=== PATIENT | male | born 1965 | race Caucasian/White ===

== ENCOUNTER 2022-09-01 12:59 | Observation (INO) | payer OTHER, SELFPAY ==
[2022-09-01 13:01] VITALS: BP 174/96; PULSE 94; RESP 18; TEMP 36.1; O2SAT 97; BMI 36.0
--- NOTE | 2022-09-01 13:20 | CT_ITS ---
EXAM: CT ABDOMEN AND PELVIS WITH INTRAVENOUS CONTRAST CLINICAL INDICATION: LLQ pain and tenderness TECHNIQUE: Helically acquired images were obtained of the abdomen and pelvis with intravenous contrast. This CT exam was performed using one or more of the following dose reduction techniques: automated exposure control, adjustment of the mA and/or kV according to patient size, and/or use of iterative reconstruction technique. This report was created using [employer] report generation technology. CONTRAST: IV 100mL Isovue-370 COMPARISON: None. FINDINGS: LOWER THORAX: Normal. Lung bases are clear. No cardiomegaly. No pericardial effusion. ABDOMEN: LIVER: Normal. Homogeneous. No focal mass. PANCREAS: Normal. No focal cystic or solid mass. SPLEEN: Normal. Normal size without focal cystic or solid mass. ADRENALS: Normal. No nodules. KIDNEYS AND URETERS: Normal. Normal renal size and position. No hydronephrosis. STOMACH AND BOWEL: Normal. No bowel distention. No focal inflammatory change. PELVIS: APPENDIX: No evidence of acute appendicitis. BLADDER: Normal. REPRODUCTIVE: Unremarkable as visualized. No mass. ABDOMEN and PELVIS: INTRAPERITONEAL SPACE: Wall thickening of the sigmoid colon noted associated with 5 x 3 cm extraluminal gas and fluid collection along the left lateral margin of the proximal sigmoid colon. Appearance consistent with acute diverticulitis with contained perforation and abscess formation. BONES/JOINTS: No suspicious lytic or blastic abnormality. SOFT TISSUES: Normal. No discrete abdominal or pelvic wall hernia. VASCULATURE: Normal. Abdominal aorta is non-dilated. LYMPH NODES: Normal. No enlarged lymph nodes. CT/Abdomen/Pelvis W IV Cont ONLY IMPRESSION: Acute sigmoid diverticulitis with perforation and associated 5 x 3 cm abscess. Electronically Signed: Grant Kyle MD at 15:14 EDT ,
[2022-09-01 13:33] LABS: Absolute Lymphocyte Count 1.55 X10^3/uL (0.83-4.51); Absolute Neutrophil Count 11.6 X10^3/uL (2.0-7.7); Basophil# 0.05 X10^3/uL; Basophil% 0.3 % (0-1); Eosinophil# 0.04 X10^3/uL; Eosinophils% 0.3 % (0-5); Hematocrit 44.6 % (40-54); Hemoglobin 14.8 g/dL (13.0-16.5); Lymphocyte # 1.55 X10^3/ul (0.83-4.51); Lymphocyte % 10.6 % (19-41); Mean Corp Hgb Conc 33.2 g/dL (32-36); Mean Corpuscular Hgb 31.2 pg (27.0-32.0); Mean Corpuscular Volume 93.9 fL (80-94); Mean Platelet Vol. 8.7 fl (6.2-12.0); Monocyte# 1.27 X10^3/uL; Monocyte% 8.7 % (0-10); NRBC Flagged by Analyzer 0 % (0-5); Neutrophil # 11.64 X10^3/uL (2.7-7.7); Neutrophil % 79.2 % (47-70); Platelet Count 275 K/mm3 (150-450); RBC Distribution Width CV 12.4 % (11.6-14.6); Red Blood Count 4.75 M/mm3 (4.6-6.2); White Blood Count 14.7 K/mm3 (4.4-11.0)
--- NOTE | 2022-09-01 13:42 | EX.ED.DYSGE1 ---
HPI <ALEXIA Hodges - Last Filed: 09/01/22 19:21> History of Present Illness Chief Complaint: Abd Pain Narrative Narrative: Patient presenting today with abdominal pain that he has had since Friday. He states that the pain is intermittent and primarily located in his left lower quadrant. Patient had to take off work Friday and Friday because his pain was so severe. He states that it is getting better, however, it is not going away. He was seen at urgent care on Friday and they diagnosed patient with constipation and encouraged him to try MiraLAX and if that did not help in 2 days to follow-up in the ED. He states that he has had loose stool since Friday without any constipation. He denies any fever, nausea, blood in the stool, and vomiting. He denies any prior abdominal surgeries as well as a history of diverticulitis. PFSH <ALEXIA Hodges - Last Filed: 09/01/22 19:21> [facility] Medical History no medical history Home Medications NK 09/01/22 [History Last Taken Unknown] Allergy/AdvReac Type Severity Reaction Status Date / Time No Known Allergies Allergy Verified 09/01/22 13:02 Surgical History no surgical history Social History Smoking Status: Never smoker ROS <ALEXIA Hodges - Last Filed: 09/01/22 19:21> ROS ED Constitutional Constitutional ED: Denies chills, fever(s) or sweats Eyes Eyes: Denies blurry vision or diplopia Cardiovascular Cardiovascular: Denies chest pain or palpitations Respiratory/Chest Respiratory/Chest: Denies cough or dyspnea Gastrointestinal Gastrointestinal: Reports abdominal pain and diarrhea; Denies constipation, nausea or vomiting Genitourinary Genitourinary ED: Denies dysuria, hematuria or urinary urgency Musculoskeletal Musculoskeletal: Denies arthralgias or myalgias Integumentary Denies abscess, Abrasions or rash Neurologic Neurologic: Denies weakness Psychiatric Psychiatric: Denies anxiety, depression, suicidal ideation or suicidal thoughts EXAM <ALEXIA Hodges - Last Filed: 09/01/22 19:21> Physical Exam Const Vital Signs: 09/01/22 13:01 09/01/22 15:48 Temperature 97 F L 98.3 F Temperature Source Temporal Temporal Pulse Rate 94 76 Respiratory Rate 18 16 Blood Pressure 174/96 H 150/86 H Blood Pressure Mean 122 107 Pulse Ox 97 97 Oxygen Delivery Method Room Air Room Air Positive well nourished, well developed and no apparent distress General Appearance ED: well developed HEENT Reports normocephalic and head/scalp atraumatic Mouth ED: Yes moist mucous membranes normal Eyes PERRL and EOMs intact bilaterally Neck full ROM and supple Chest Wall inspection of chest normal Resp normal respiratory effort and clear to auscultation bilaterally Cardio regular rate and regular rhythm GI soft to palpation, non-tender, non-distended and no masses GI Narrative: L lower quadrant tenderness to palpation without any rigidity or guarding. No peritoneal signs. Back/Spine normal ROM and normal to inspection Extremity normal to inspection and full ROM Neuro oriented x3, CN's II-XII intact bilaterally, moves all extremities, no focal motor deficits and no sensory deficits noted Sensorium / Orientation: awake and alert Psych mental status grossly normal and thought process normal Skin no rashes or lesions noted and no wounds <Dr. Jovi Alford MD - Last Filed: 09/01/22 14:13> Physical Exam Const Vital Signs: 09/01/22 13:01 09/01/22 15:48 Temperature 97 F L 98.3 F Temperature Source Temporal Temporal Pulse Rate 94 76 Respiratory Rate 18 16 Blood Pressure 174/96 H 150/86 H Blood Pressure Mean 122 107 Pulse Ox 97 97 Oxygen Delivery Method Room Air Room Air [facility] <ALEXIA Hodges - Last Filed: 09/01/22 19:21> [facility] Narrative Medical decision making narrative: Patient presenting today with left lower quadrant abdominal pain that he has had since last Friday. He states that the pain is getting better and was much more severe on Friday and Friday. However, since it has not gone away he thought he would come in to be evaluated. There are suspicions for diverticulitis as well as other abdominal etiology. Labs will be obtained to rule out leukocytosis, anemia, evaluate kidney function and liver enzymes. Patient does not want anything for pain at this time nor is he nauseous. Because of his abdominal tenderness on examination, CT of the abdomen and pelvis with IV contrast will be obtained to rule out diverticulitis, hernia, pancreatitis, kidney stone, and other abdominal etiology. CT does show a acute sigmoid diverticulitis with a perforation and fluid collection. Patient does have an elevated WBC count. General surgery has been consulted, patient will be admitted to the hospital in stable condition for further evaluation. He has been started on IV Zosyn. He is comfortable with plan. I have personally performed a face to face assessment of the patient and have reviewed the OLEKSANDR Note. I performed a substantive portion of the visit including all aspects of the following. My deng findings include: History is for 6-year-old male no seen past medical history. No primary care physician. Being evaluated by myself with our physician switchboard operator assistant. Complain left lower quadrant abdominal pain for approximately a week. Was seen in urgent care placed on MiraLAX for possible constipation. States has been having normal bowel movements before and after the MiraLAX. No dysuria or hematuria. No fever. No prior history of diverticulitis. No abdominal trauma. No history of kidney stone. Denies any urinary symptoms. Exam is [56-year-old male no acute distress. Vital signs stable afebrile. HEENT exam unremarkable. Lungs clear. Heart regular rhythm no murmur. Abdomen soft nondistended normal bowel sounds no peritoneal signs. Tender left lower quadrant only. Right upper right lower quadrant unremarkable. No obvious hernia. No mass. No distention. No signs of trauma. Moving all 4 extremities. Neurologic exam normal.] Medical Decision Making [middle-aged male with left lower quadrant abdominal pain differential would include diverticulitis versus hernia versus kidney stone versus muscle strain versus other. CAT scan and labs are pending.] Other additions or changes: [None] Lab Data Attestation: I reviewed the patient's lab results. Lab results narrative: W AC 47, sodium 133, AST 10 Labs: Laboratory Results - last 24 hr 09/01/22 09/01/22 13:20 13:20 WBC 14.7 H RBC 4.75 Hgb 14.8 Hct 44.6 MCV 93.9 MCH 31.2 MCHC 33.2 RDW Std Deviation 43.0 RDW Coeff of Rae 12.4 Plt Count 275 MPV 8.7 Immature Gran % (Auto) 0.900 Neut % (Auto) 79.2 H Lymph % (Auto) 10.6 L [place] % (Auto) 8.7 Eos % (Auto) 0.3 Baso % (Auto) 0.3 Absolute Neuts (auto) 11.6 H Absolute Lymphs (auto) 1.55 Nucleated RBC % 0 Sodium 133 L Potassium 4.3 Chloride 101 Carbon Dioxide 25.0 Anion Gap 7 BUN 10 Creatinine 0.98 Estim Creat Clear Calc 86.90 Est GFR (MDRD) Af Amer 102 Est GFR (MDRD) Non-Af 84 BUN/Creatinine Ratio 10.2 Glucose 106 Calcium 9.0 Total Bilirubin 0.60 AST 10 L ALT 34 Alkaline Phosphatase 79 Total Protein 7.3 Albumin 3.2 Globulin 4.1 Albumin/Globulin Ratio 0.8 L Radiography Diagnostic Testing: Clinical Impression(s) from Imaging Studies Abdomen/Pelvis CT 09/01/22 13:20 IMPRESSION: Acute sigmoid diverticulitis with perforation and associated 5 x 3 cm abscess. Electronically Signed: Grant Kyle MD at 15:14 EDT , CT also reviewed and interpreted by attending ED physician <Dr. Jovi Alford MD - Last Filed: 09/01/22 14:13> MDM MDM Narrative Medical decision making narrative: I have personally performed a face to face assessment of the patient and have reviewed the OLEKSANDR Note. I performed a substantive portion of the visit including all aspects of the following. My deng findings include: History is for 6-year-old male no seen past medical history. No primary care physician. Being evaluated by myself with our physician switchboard operator assistant. Complain left lower quadrant abdominal pain for approximately a week. Was seen in urgent care placed on MiraLAX for possible constipation. States has been having normal bowel movements before and after the MiraLAX. No dysuria or hematuria. No fever. No prior history of diverticulitis. No abdominal trauma. No history of kidney stone. Denies any urinary symptoms. Exam is [56-year-old male no acute distress. Vital signs stable afebrile. HEENT exam unremarkable. Lungs clear. Heart regular rhythm no murmur. Abdomen soft nondistended normal bowel sounds no peritoneal signs. Tender left lower quadrant only. Right upper right lower quadrant unremarkable. No obvious hernia. No mass. No distention. No signs of trauma. Moving all 4 extremities. Neurologic exam normal.] Medical Decision Making [middle-aged male with left lower quadrant abdominal pain differential would include diverticulitis versus hernia versus kidney stone versus muscle strain versus other. CAT scan and labs are pending.] Other additions or changes: [None] Lab Data Labs: Laboratory Results - last 24 hr 09/01/22 09/01/22 13:20 13:20 WBC 14.7 H RBC 4.75 Hgb 14.8 Hct 44.6 MCV 93.9 MCH 31.2 MCHC 33.2 RDW Std Deviation 43.0 RDW Coeff of Rae 12.4 Plt Count 275 MPV 8.7 Immature Gran % (Auto) 0.900 Neut % (Auto) 79.2 H Lymph % (Auto) 10.6 L [place] % (Auto) 8.7 Eos % (Auto) 0.3 Baso % (Auto) 0.3 Absolute Neuts (auto) 11.6 H Absolute Lymphs (auto) 1.55 Nucleated RBC % 0 Sodium 133 L Potassium 4.3 Chloride 101 Carbon Dioxide 25.0 Anion Gap 7 BUN 10 Creatinine 0.98 Estim Creat Clear Calc 86.90 Est GFR (MDRD) Af Amer 102 Est GFR (MDRD) Non-Af 84 BUN/Creatinine Ratio 10.2 Glucose 106 Calcium 9.0 Total Bilirubin 0.60 AST 10 L ALT 34 Alkaline Phosphatase 79 Total Protein 7.3 Albumin 3.2 Globulin 4.1 Albumin/Globulin Ratio 0.8 L Radiography Diagnostic Testing: Clinical Impression(s) from Imaging Studies Abdomen/Pelvis CT 09/01/22 13:20 IMPRESSION: Acute sigmoid diverticulitis with perforation and associated 5 x 3 cm abscess. Electronically Signed: Grant Kyle MD at 15:14 EDT , Discharge Plan Dx/Rx/DC Orders Clinical Impression: Perforation of sigmoid colon due to diverticulitis Disposition Disposition: Acute Care Hospital [facility] Discharge Date/Time: 09/01/22 16:50
[2022-09-01 13:49] LABS: ALB/GLOB Ratio 0.8 RATIO (0.9-2.4); AST(SGOT) 10 U/L (15-37); Alanine Aminotransfer ALT/SGPT 34 U/L (16-61); Albumin, Serum 3.2 g/dL (3.2-5.0); Alkaline Phosphatase 79 U/L (45-117); Anion Gap 7 (5-15); BUN 10 mg/dL (7-18); BUN/Creat Ratio 10.2 RATIO (10-20); Chloride 101 mmol/L (98-107); Creatinine, Serum 0.98 mg/dL (0.70-1.30); EST Glomerular Filtration Rate 84 mL/min (>60); Est Glom Filt Rate - Afr Amer 102 mL/min (>60); Globulin 4.1 g/dL (2.2-4.2); Glucose 106 mg/dL (74-106); Potassium 4.3 mmol/L (3.5-5.1); Protein, Total 7.3 g/dL (6.4-8.2); Sodium Level 133 mmol/L (136-145)
[2022-09-01 15:48] VITALS: BP 150/86; PULSE 76; RESP 16; TEMP 36.8; O2SAT 97
--- NOTE | 2022-09-01 16:15 | HP.PCM.SX_ITS ---
HPI - General General Date of Admission: 09/01/22 HPI Narrative LIZA MEAD, is a 56 M who presents with lower pain. Patient had sudden left lower quadrant pain that happened in the middle the night last Friday, 1 week ago. Patient reports that he went to an urgent care in the middle of the week and they diagnosed him as constipation and started him on laxatives. He says for the past few days the pain is actually getting better but has persisted so he came to the emergency room. He denies fevers or chills or nausea or vomiting. He has never had a colonoscopy. He denies blood in his stool. [facility] Medical History no medical history Home Medications NK 09/01/22 [History Last Taken Unknown] Allergy/AdvReac Type Severity Reaction Status Date / Time No Known Allergies Allergy Verified 09/01/22 13:02 no significant family history Surgical History no surgical history no surgical history Social History Smoking Status: Never smoker ROS Constitutional Constitutional: Denies anorexia or fatigue Eyes Eyes: Denies blurry vision ENT HEENT: Denies abnormal hearing Cardiovascular Cardiovascular: Denies chest pain Respiratory/Chest Respiratory/Chest: Denies cough or dyspnea Gastrointestinal Gastrointestinal: Reports abdominal pain; Denies constipation, diarrhea, nausea or vomiting Genitourinary Genitourinary: Denies change in urinary stream Musculoskeletal Musculoskeletal: Denies abnormal gait Integumentary Integumentary: Denies jaundice Neurologic Neurologic: Denies dizziness Psychiatric Psychiatric: Denies anxiety Vital Signs Vital Signs Vital Signs: 09/01/22 13:01 09/01/22 15:48 Temperature 97 F L 98.3 F Temperature Source Temporal Temporal Pulse Rate 94 76 Respiratory Rate 18 16 Blood Pressure 174/96 H 150/86 H Blood Pressure Mean 122 107 Pulse Ox 97 97 Oxygen Delivery Method Room Air Room Air Weight Weight: 251 lb Body Mass Index (BMI) 36.0 Physical Exam Const oriented x3 Resp normal respiratory effort Cardio regular rate and regular rhythm GI soft to palpation Inspection: Negative for abdominal distention Palpation: tender LLQ Extremity normal to inspection Results Lab / Micro Data Result Diagrams: 09/01/22 13:20 09/01/22 13:20 Labs: Laboratory Results - last 24 hr 09/01/22 13:20: WBC 14.7 H, RBC 4.75, Hgb 14.8, Hct 44.6, MCV 93.9, MCH 31.2, MCHC 33.2, RDW Std Deviation 43.0, RDW Coeff of Rae 12.4, Plt Count 275, MPV 8.7, Immature Gran % (Auto) 0.900, Neut % (Auto) 79.2 H, Lymph % (Auto) 10.6 L, [place] % (Auto) 8.7, Eos % (Auto) 0.3, Baso % (Auto) 0.3, Absolute Neuts (auto) 11 .6 H, Absolute Lymphs (auto) 1.55, Nucleated RBC % 0 09/01/22 13:20: Sodium 133 L, Potassium 4.3, Chloride 101, Carbon Dioxide 25.0, Anion Gap 7, BUN 10, Creatinine 0.98, Estim Creat Clear Calc 86.90, Est GFR (MDRD) Af Amer 102, Est GFR (MDRD) Non-Af 84, BUN/Creatinine Ratio 10.2, Glucose 106, Calcium 9.0, Total Bilirubin 0.60, AST 10 L, ALT 34, Alkaline Phosphatase 79, Total Protein 7.3, Albumin 3.2, Globulin 4.1, Albumin/Globulin Ratio 0.8 L Radiology Impression Abdomen/Pelvis CT 09/01/22 13:20 IMPRESSION: Acute sigmoid diverticulitis with perforation and associated 5 x 3 cm abscess. Electronically Signed: Grant Kyle MD at 15:14 EDT Reading Location ID and State: [address] [place] [address] Tel , Service support , Assessment & Plan Assessment/Plan (1) Perforation of sigmoid colon due to diverticulitis: PLAN: Patient has CT scan which shows sigmoid diverticulitis with perforation and possible early abscess. It appears there is some free air lateral to the sigmoid colon but it appears to be contained and there is minimal fluid around the free air. I believe the patient perforated earlier in the week and it sealed off and was actually getting better. I do not believe that the fluid collection needs drained yet as it is very small. I will admit him on clear li quids and start some IV antibiotics and recheck labs in the morning. Patient reports that he has been getting better over the last few days so I believe that he was recovering and I will likely send him home on oral antibiotics and have him follow a soft diet. I will likely repeat a CT scan in 2 to 3 days. I did discuss surgery if anything worsened or need for possible drainage of that abscess. Arthur Bergman MD Pager: [facility] [address] [place] [address], [address] [place] [phone] Office:
[2022-09-01 17:07] VITALS: BMI 35.6
[2022-09-01 17:13] VITALS: BP 150/94; PULSE 81; RESP 16; TEMP 36.7; O2SAT 100
[2022-09-01] MEDS: 0.9% Normal Saline 1,000 ML 60 ML IV (18:33)
[2022-09-01 21:28] VITALS: BP 130/67; PULSE 85; RESP 18; TEMP 37; O2SAT 97
[2022-09-02 03:51] VITALS: BP 127/58; PULSE 84; RESP 18; TEMP 36.9; O2SAT 96
[2022-09-02 05:07] LABS: Absolute Lymphocyte Count 1.56 X10^3/uL (0.83-4.51); Absolute Neutrophil Count 10.2 X10^3/uL (2.0-7.7); Basophil# 0.03 X10^3/uL; Basophil% 0.2 % (0-1); Eosinophil# 0.07 X10^3/uL; Eosinophils% 0.5 % (0-5); Lymphocyte # 1.56 X10^3/ul (0.83-4.51); Lymphocyte % 11.8 % (19-41); Mean Corp Hgb Conc 33.3 g/dL (32-36); Mean Corpuscular Volume 93.1 fL (80-94); Mean Platelet Vol. 8.5 fl (6.2-12.0); Monocyte# 1.23 X10^3/uL; Monocyte% 9.3 % (0-10); NRBC Flagged by Analyzer 0 % (0-5); Neutrophil # 10.19 X10^3/uL (2.7-7.7); Neutrophil % 77.4 % (47-70); Platelet Count 271 K/mm3 (150-450); RBC Distribution Width CV 12.6 % (11.6-14.6); RBC Distribution Width SD 43.2 fl (35.1-43.9); Red Blood Count 4.51 M/mm3 (4.6-6.2); White Blood Count 13.2 K/mm3 (4.4-11.0)
[2022-09-02 05:34] LABS: Anion Gap 5 (5-15); BUN 9 mg/dL (7-18); Calcium,Total 8.8 mg/dL (8.5-10.1); Chloride 99 mmol/L (98-107); EST Glomerular Filtration Rate 82 mL/min (>60); Est Glom Filt Rate - Afr Amer 99 mL/min (>60); Estimated Creatinine Clearance 85.17 ml/min; Glucose 109 mg/dL (74-106); Sodium Level 129 mmol/L (136-145)
--- NOTE | 2022-09-02 07:54 | PCM.PN.SRG ---
Subjective Subjective Patient reports no abdominal pain. He said he had some cramping overnight but currently he has no pain. Objective Data Objective Data Vital Signs: Vital Signs Temp Pulse Resp BP Pulse Ox O2 Del Method 98.4 F 84 18 127/58 H 96 Room Air 09/02/22 03:51 09/02/22 03:51 09/02/22 03:51 09/02/22 03:51 09/02/22 03:51 09/02/22 03:51 Oxygen Delivery Method Room Air Weight: 248 lb 0.011 oz Body Mass Index (BMI) 35.6 Intake & Output: Intake and Output for Last 24 Hours 08/31/22 09/01/22 09/02/22 23:59 23:59 23:59 Intake Total 520 / 520 359 / 359 Balance 520 / 520 359 / 359 Lab / Micro Data Result Diagrams: 09/02/22 04:50 09/02/22 04:50 Labs: Laboratory Results - last 24 hr 09/01/22 13:20: WBC 14.7 H, RBC 4.75, Hgb 14.8, Hct 44.6, MCV 93.9, MCH 31.2, MCHC 33.2, RDW Std Deviation 43.0, RDW Coeff of Rae 12.4, Plt Count 275, MPV 8.7, Immature Gran % (Auto) 0.900, Neut % (Auto) 79.2 H, Lymph % (Auto) 10.6 L, [place] % (Auto) 8.7, Eos % (Auto) 0.3, Baso % (Auto) 0.3, Absolute Neuts (auto) 11.6 H, Absolute Lymphs (auto) 1.55, Nucleated RBC % 0 09/01/22 13:20: Sodium 133 L, Potassium 4.3, Chloride 101, Carbon Dioxide 25.0, Anion Gap 7, BUN 10, Creatinine 0.98, Estim Creat Clear Calc 86.90, Est GFR (MDRD) Af Amer 102, Est GFR (MDRD) Non-Af 84, BUN/Creatinine Ratio 10.2, Glucose 106, Calcium 9.0, Total Bilirubin 0.60, AST 10 L, ALT 34, Alkaline Phosphatase 79, Total Protein 7.3, Albumin 3.2, Globulin 4.1, Albumin/Globulin Ratio 0.8 L 09/02/22 04:50: WBC 13.2 H, RBC 4.51 L, Hgb 14.0, Hct 42.0, MCV 93.1, MCH 31.0, MCHC 33.3, RDW Std Deviation 43.2, RDW Coeff of Rae 12.6, Plt Count 271, MPV 8.5, Immature Gran % (Auto) 0.800, Neut % (Auto) 77.4 H, Lymph % (Auto) 11.8 L, [place] % (Auto) 9.3, Eos % (Auto) 0.5, Baso % (Auto) 0.2, Absolute Neuts (auto) 10.2 H, Absolute Lymphs (auto) 1.56, Nucleated RBC % 0 09/02/22 04:50: Sodium 129 L, Potassium 4.0, Chloride 99, Carbon Dioxide 25.0, Anion Gap 5, BUN 9, Creatinine 1.00, Estim Creat Clear Calc 85.17, Est GFR (MDRD) Af Amer 99, Est GFR (MDRD) Non-Af 82, BUN/Creatinine Ratio 9.0 L, Glucose 109 H, Calcium 8.8 Radiography Diagnostic Testing: Radiology Impression Abdomen/Pelvis CT 09/01/22 13:20 IMPRESSION: Acute sigmoid diverticulitis with perforation and associated 5 x 3 cm abscess. Electronically Signed: Grant Kyle MD at 15:14 EDT , Physical Exam Const oriented x3 Resp normal respiratory effort GI soft to palpation and non-tender Assessment & Plan Assessment/Plan (1) Perforation of sigmoid colon due to diverticulitis: PLAN: Patient reports no abdominal pain this morning. He says that he did have some cramping but it was during when he is passing gas and it was not painful. I believe his perforation sealed earlier in the week and I will send him home on Cipro and Flagyl and I told him to follow the transitional diet. I will repeat a CT scan later this week as an outpatient and follow-up with him. I will schedule an outpatient colonoscopy in 4 to 6 weeks. Arthur Bergman MD Pager: [facility] [address] [place] [address] [facility], [address] [place] [address] Office:
[2022-09-02 07:55] VITALS: BP 134/85; PULSE 84; RESP 18; TEMP 36.4; O2SAT 97
--- NOTE | 2022-09-02 07:56 | PCM.DC.SUM ---
Providers Date of Admission: 09/01/22 Primary Care Physician: No Primary Care Phys Reason For Visit: PERFORATED DIVERTICULITIS Diagnosis Discharge Diagnosis (1) Perforation of sigmoid colon due to diverticulitis: Status: Acute Code(s): K57.20 - Diverticulitis of large intestine with perforation and abscess without bleeding Plan: Patient reports no abdominal pain this morning. He says that he did have some cramping but it was during when he is passing gas and it was not painful. I believe his perforation sealed earlier in the week and I will send him home on Cipro and Flagyl and I told him to follow the transitional diet. I will repeat a CT scan later this week as an outpatient and follow-up with him. I will schedule an outpatient colonoscopy in 4 to 6 weeks. Arthur Bergman MD Pager: [facility] [address] [place] [address], [address] [place] [phone] Office: Medications at Discharge Home Medications ciprofloxacin HCl 500 mg tablet (Cipro) 500 mg PO BID #20 tabs 09/02/22 metronidazole 500 mg tablet 500 mg PO TID #30 tabs 09/02/22 Hospital Course Summary of Care Provided Hospital Course: Patient was admitted with microperforation of the colon with a small air-filled abscess adjacent to the colon. Patient was Having any abdominal pain pain the following day and I believe his perforation happened earlier in the week. Will be discharged home on oral antibiotics and will follow-up with me. Weight / BMI Weight Weight: 248 lb 0.011 oz Body Mass Index (BMI) 35.6 ABG / Lab / Microbiology Data Result Diagrams: 09/02/22 04:50 09/02/22 04:50 Laboratory: Laboratory Results - last 24 hr 09/01/22 13:20: WBC 14.7 H, RBC 4.75, Hgb 14.8, Hct 44.6, MCV 93.9, MCH 31.2, MCHC 33.2, RDW Std Deviation 43.0, RDW Coeff of Rae 12.4, Plt Count 275, MPV 8.7, Immature Gran % (Auto) 0.900, Neut % (Auto) 79.2 H, Lymph % (Auto) 10.6 L, Glynn % (Auto) 8.7, Eos % (Auto) 0.3, Baso % (Auto) 0.3, Absolute Neuts (auto) 11.6 H, Absolute Lymphs (auto) 1.55, Nucleated RBC % 0 09/01/22 13:20: Sodium 133 L, Potassium 4.3, Chloride 101, Carbon Dioxide 25.0, Anion Gap 7, BUN 10, Creatinine 0.98, Estim Creat Clear Calc 86.90, Est GFR (MDRD) Af Amer 102, Est GFR (MDRD) Non-Af 84, BUN/Creatinine Ratio 10.2, Glucose 106, Calcium 9.0, Total Bilirubin 0.60, AST 10 L, ALT 34, Alkaline Phosphatase 79, Total Protein 7.3, Albumin 3.2, Globulin 4.1, Albumin/Globulin Ratio 0.8 L 09/02/22 04:50: WBC 13.2 H, RBC 4.51 L, Hgb 14.0, Hct 42.0, MCV 93.1, MCH 31.0, MCHC 33.3, RDW Std Deviation 43.2, RDW Coeff of Rae 12.6, Plt Count 271, MPV 8.5, Immature Gran % (Auto) 0.800, Neut % (Auto) 77.4 H, Lymph % (Auto) 11.8 L, Glynn % (Auto) 9.3, Eos % (Auto) 0.5, Baso % (Auto) 0.2, Absolute Neuts (auto) 10.2 H, Absolute Lymphs (auto) 1.56, Nucleated RBC % 0 09/02/22 04:50: Sodium 129 L, Potassium 4.0, Chloride 99, Carbon Dioxide 25.0, Anion Gap 5, BUN 9, Creatinine 1.00, Estim Creat Clear Calc 85.17, Est GFR (MDRD) Af Amer 99, Est GFR (MDRD) Non-Af 82, BUN/Creatinine Ratio 9.0 L, Glucose 109 H, Calcium 8.8 Radiography Diagnostic Testing: Radiology Impression Abdomen/Pelvis CT 09/01/22 13:20 IMPRESSION: Acute sigmoid diverticulitis with perforation and associated 5 x 3 cm abscess. Electronically Signed: Grant Kyle MD at 15:14 EDT , D/C Instructions Discharge Diet: Light diet - advance as tolerated (Advance to transitional diet) Discharge Activity: Return to Normal Activity May resume sexual activity in: No Restrictions Call your doctor if your incision/area has: Increased Pain/ Swelling Call your doctor if you observe: Fever of 101 or Higher and Inability to have a bowel movement Pending Tests Upon Discharge: CT abdomen this week Please Follow Up With: Arthur Bergman MD When: Please call to schedule 1 week follow up appointment. [phone] Meaningful Use Info Meaningful Use Diagnoses (Choose all that apply): None applicable Discharge Plan Admission Admit Date/Time: 09/01/22 16:11 Attending Provider: Arthur Bergman Primary Care Provider: Nancy Lopez Primary Discharge Orders/Prescriptions Prescriptions: New ciprofloxacin HCl [Cipro] 500 mg tablet 500 mg PO BID Qty: 20 0RF metronidazole 500 mg tablet 500 mg PO TID Qty: 30 0RF Other Ambulatory Orders: Abdomen/Pelvis WITH Contrast (Routine) Facility: [facility] - Location: [facility] Ordered By: Dr. Arthur Bergman Referrals / Follow Up: Care Physician,No Primary [Primary Care Provider] - Disposition Disposition (needs filled in before D/C Order can be placed): Home, Self Care
--- NOTE | 2022-09-02 10:09 | PHA.DC.MC ---
Pharmacy Service has performed discharge medication reconciliation and counseling for this patient. 1. CIPROFLOXACIN 500MG PO BID X 10 DAYS 2. METRONIDAZOLE 500MG PO TID X 10 DAYS The patient's discharge medication list was reviewed for discrepancies and discrepancies were resolved. Home Medications ciprofloxacin HCl 500 mg tablet (Cipro) 500 mg PO BID #20 tabs 09/02/22 metronidazole 500 mg tablet 500 mg PO TID #30 tabs 09/02/22 The patient was counseled on the following discharge medications and changes in medications for homegoing were reviewed. The Reason for Use, instructions for use, and potential side effects were reviewed for all new medications. The patient's questions regarding all of their medications were answered. The patient was able to verbally demonstrate an understanding of their discharge medications.
== END 2022-09-02 10:28 | disposition home or self-care (01) ==
LOC: ED 14:01 → MS3 16:17
PROVIDERS: Physician Assistant; Admitting Provider Surgery; Emergency Provider Emergency Medicine; Visit Provider Surgery
DX: K57.20 Diverticulitis of large intestine with perforation and abscess without bleeding (principal)
CPT/HCPCS: 36415; 74177; 80048; 80053; 85025; 96365; 96366; 99221; 99284; J7030; Q9967; A4216; G0378

== ENCOUNTER → 2022-09-04 | Outpatient (CLI) | payer OTHER, SELFPAY ==
--- NOTE | 2022-09-04 06:51 | CT_ITS ---
We are attempting to reach an attending provider to discuss findings. An addendum with communication details will be sent when the communication is complete. STUDY: CT ABDOMEN AND PELVIS WITH CONTRAST - URINARY TRACT REASON FOR EXAM: Male, 56 years old. follow up perforated diverticulitis -- PO and IV contrast, to be done between 09/04-09/06 RADIATION DOSAGE (If Supplied By Facility): CTDIvol = ( 16.51 ) mGy, DLP = ( 1229.14 ) mGycm TECHNIQUE: Oral and amp; IV Readi-CAT and amp; 100mL Isovue-370 was administered. Transaxial images were obtained from the dome of the diaphragm to the symphysis pubis in the arterial, nephrographic and excretory phases. Multiplanar coronal and sagittal images were reformatted. Individualized Dose Optimization Techniques Were Used For This CT. COMPARISON: FINDINGS: The visualized lung bases are unremarkable. The visualized portions of the heart are within normal limits. Normal liver. Normal gallbladder and extrahepatic biliary system. Normal spleen. Normal pancreas. Normal bilateral adrenal glands. Normal visualized stomach. Normal small intestine. There is diverticulosis, with thickening of the colon wall, and pericolonic inflammation changes consistent with acute diverticulitis. Minimal free air is seen in the sigmoid colon consistent with a ruptured diverticulum The appendix is visualized and appears normal. Normal abdominal aorta. No retroperitoneal adenopathy. Normal right kidney. Normal left kidney. Normal urinary bladder. Normal abdominal wall. Normal osseous structures. CT/Abdomen/Pelvis WITH Contrast IMPRESSION: There is diverticulosis, with thickening of the colon wall, and pericolonic inflammation changes consistent with acute diverticulitis. Minimal free air is seen in the sigmoid colon consistent with a ruptured diverticulum. Electronically Signed: Lauren Leary MD at 7:42 EDT ,
== END | disposition home or self-care (01) ==
PROVIDERS: Referring Provider Surgery; Visit Provider Surgery
DX: K57.90 Diverticulosis of intestine, part unspecified, without perforation or abscess without bleeding (principal)
CPT/HCPCS: 74177; Q9967

== ENCOUNTER → 2022-09-30 | Outpatient (CLI) | payer OTHER, SELFPAY ==
[2022-09-30 15:27] LABS: Absolute Lymphocyte Count 2.03 X10^3/uL (0.83-4.51); Absolute Neutrophil Count 3.7 X10^3/uL (2.0-7.7); Basophil# 0.02 X10^3/uL; Basophil% 0.3 % (0-1); Eosinophil# 0.08 X10^3/uL; Eosinophils% 1.2 % (0-5); Hemoglobin 14.7 g/dL (13.0-16.5); Lymphocyte # 2.03 X10^3/ul (0.83-4.51); Lymphocyte % 30.4 % (19-41); Mean Corp Hgb Conc 34.2 g/dL (32-36); Mean Corpuscular Hgb 30.3 pg (27.0-32.0); Mean Corpuscular Volume 88.7 fL (80-94); Mean Platelet Vol. 8.9 fl (6.2-12.0); Monocyte# 0.81 X10^3/uL; Monocyte% 12.1 % (0-10); NRBC Flagged by Analyzer 0 % (0-5); Neutrophil # 3.68 X10^3/uL (2.7-7.7); Neutrophil % 55.3 % (47-70); Platelet Count 174 K/mm3 (150-450); RBC Distribution Width CV 13.5 % (11.6-14.6); RBC Distribution Width SD 43.8 fl (35.1-43.9); Red Blood Count 4.85 M/mm3 (4.6-6.2); White Blood Count 6.7 K/mm3 (4.4-11.0)
== END | disposition home or self-care (01) ==
LOC: PAVLAB 15:00
PROVIDERS: Referring Provider Surgery; Visit Provider Surgery
DX: K57.20 Diverticulitis of large intestine with perforation and abscess without bleeding (principal); R19.7 Diarrhea, unspecified
CPT/HCPCS: 36415; 85025; 87493

== ENCOUNTER 2022-10-25 08:54 | Day surgery (SDC) | payer OTHER, SELFPAY ==
[2022-10-25] VITALS (7 sets, daily range): BP systolic 113–167; BP diastolic 78–95; PULSE 58–72; RESP 16–18; TEMP 36.4–36.8; O2SAT 96–98; BMI 33.8
--- NOTE | 2022-10-25 | COLBX_PTH ---
PATIENT: LIZA MEAD LOC: EN U#:[id number] AGE/SX: 57/M ROOM: RE10/25/[address]: Dr. Arthur Bergman MD : 1965 BED: DIS: 10/25/2022 SPEC #: [id number] RECD: 10/25/22 11:14 STATUS: GEORGE YAZ #: [id number] DELLA: 10/25/22 00:[address]: Arthur Bergman DEPT: SURGICAL PATHOLOGY RECD BY: Beth Yang ENTERED: 10/25/22 12:10 SP TYPE: COLON BX OTHR DR: No Primary Care Phys Tissues: A - COLON BIOPSY B - Descending colon Procedures: Surgery Specimen Level IV HEADER OPERATION: Colonoscopy (MAC), biopsy, polypectomy PRE-OP DIAGNOSIS: Perforation of sigmoid colon due to diverticulitis TISSUE SUBMITTED: A ? Random colonic biopsy, B ? Descending polyp MICROSCOPIC DIAGNOSIS A. Colon, random biopsy: Focal acute colitis. See comment. B. Descending colon polyp, biopsy: Tubular adenoma. AM:nelly 10/28/2022 COMMENT A. There is focal cryptitis and crypt abscesses identified. Fissuring ulcers and transmural lymphoid aggregates are not identified. Clinical correlation is suggested. MICROSCOPIC DESCRIPTION Slides are reviewed. GROSS DESCRIPTION A - Received in fixative is one container labeled with the patient's name and designated random colon biopsy. The specimen consists of multiple irregular fragments of light lafleur soft tissue that in aggregate measure 2.0 x 0.5 x 0.1 cm. The specimen is totally submitted in one cassette. B - Received in fixative is one container labeled with the patient's name and designated descending polyp. The specimen consists of a lafleur-pink polyp measuring 0.6 x 0.4 x 0.4 cm. The specimen is totally submitted in one cassette. / ANABELLA:nelly 10/25/2022 TC:2 CPT: 81613 x2
[2022-10-25] MEDS: Lactated Ringers 1,000 ML 15 ML IV (09:24)
--- NOTE | 2022-10-25 10:08 | PCM.HP.BLA ---
History and Physical Date of Admission: 10/25/22 Intake Vital Signs ? 09/01/2316:07 Height 5 ft 10 in Intake Visit Reasons:?Diverticulitis Allergies No Known Allergies Allergy (Verified 09/01/22 13:02) PFSH Medical History ? no medical history? Surgical History? no surgical history ? Social History? Smoking Status:? Never smoker HPI HPI HPI: Patient is a 56-year-old male who was recently admitted with perforated diverticulitis.? Patient had a small amount of air lateral to the sigmoid colon but he had been sick a week before and I believe he had sealed itself off before then.? He was admitted and put on IV antibiotics and repeat CT was obtained 2 days later which showed no change.? Patient was discharged on oral antibiotics and reports he has been doing well.? He does not have any abdominal pain.? He has been having normal bowel movements.? He reports no pain with flatus or bowel movements.? Denies fevers or chills. ROS General General: No weight change or fatigue HEENT HEENT: No difficulty swallowing Endo Endocrine: No thyroid disease Musc Musculoskeletal: No back problems or arthritis Cardio Cardiovascular: No pacemaker, heart disease, atrial fibrillation, high blood pressure, heart attack, heart stent, palpitations or chest pain Psych Psychiatric: No depression or anxiety Resp Respiratory: No shortness of breath, No cough, No COPD, No asthma and No emphysema Gastro Gastrointestinal: No abdominal pain, No nausea or vomiting, No diarrhea, No constipation, No blood in stool, No acid reflux, No hemorrhoids, No ulcers, No gallbladder problem and No black,tarry stools Abhijeet Hematologic: No blood thinners Exam Const General: cooperative Orientation: alert and oriented x3 HENMT Head: normal to inspection Neck Neck: normal visual inspection and full ROM Chest Chest palpation & inspection: normal inspection of the chest Resp Effort & Inspection: normal respiratory effort Auscultation: clear to auscultation bilaterally Cardio Rate: regular rate Rhythm: regular rhythm GI Inspection: non-distended Palpation: soft and nontender Skin General: no rashes or lesions noted Neuro General: patient alert and patient oriented x3 Extrem General: full ROM Psych Appearance: grossly normal Mental Status: mental status grossly normal Assessment and Plan Assessment and Plan (1) Perforation of sigmoid colon due to diverticulitis: ?Status:?Acute ?Plan: Patient had perforated diverticulitis which was treated conservatively.? I would like to perform a colonoscopy in about 4 to 6 weeks.? I discussed that the patient should return to my office or call me immediately if any of his symptoms worsen or return before then. I explained endoscopy in detail to the patient.? I explained the risks including but not limited to stroke or heart attack with anesthesia, perforation of the GI tract, bleeding, infection.? I explained that any of these could necessitate further emergency surgery.? The patient understands and all questions were answered sufficiently.? The patient wishes to proceed with procedure. Arthur Bergman MD Pager: [facility] [address] [place] [address] [address] [place] [address] Office: I have examined the patient and the H&P has been reviewed. There are no clinical changes since date of exam.
--- NOTE | 2022-10-25 10:45 | OP.CCLET_ITS ---
10/25/2022 No Primary Care Physician Re : Colonoscopy procedure for Chris Reyes [facility] Physician This procedure was performed on Tuesday, October 25, 2022. My impressions and recommendations are as follows: Impressions : - Scattered severe inflammation was found in the rectum, in the sigmoid colon and in the descending colon secondary to colitis. Biopsied. - One polyp in the descending colon, removed with a hot snare. Resected and retrieved. Recommendations : - Discharge patient to home. - Resume previous diet. - Vancocin (vancomycin) 250 mg PO QID for 2 weeks. - Repeat colonoscopy in 5 years for surveillance. - Continue present medications. My findings are described in the full procedure note, which is enclosed. If I can be of further assistance, please feel free to contact me at Doctor phone number(s): , Work: . Sincerely, Arthur Bergman MD 10/25/2022 10:45:03 AM This report has been signed electronically.
--- NOTE | 2022-10-25 10:45 | OP.COLON_ITS ---
Patient Name: Chris Reyes Procedure Date: 10/25/2022 10:20 AM Date of : 1965 Age: 57 Procedure: Colonoscopy Indications: Follow-up of diverticulitis Providers: Arthur Bergman MD Referring MD: Arthur Bergman MD Medicines: Monitored Anesthesia Care Patient Profile: This is a 57 year old male. Refer to note in patient chart for documentation of history and physical. Last Colonoscopy: none. The patient's first colonoscopy is today. Complications: No immediate complications. Estimated blood loss: Minimal. Procedure: Pre-Anesthesia Assessment: - Prior to the procedure, a History and Physical was performed, and patient medications and allergies were reviewed. The patient's tolerance of previous anesthesia was also reviewed. The risks and benefits of the procedure and the sedation options and risks were discussed with the patient. All questions were answered, and informed consent was obtained. Prior Anticoagulants: The patient has taken no previous anticoagulant or antiplatelet agents. After reviewing the risks and benefits, the patient was deemed in satisfactory condition to undergo the procedure. After I obtained informed consent, the scope was passed under direct vision. Throughout the procedure, the patient's blood pressure, pulse, and oxygen saturations were monitored continuously. The was introduced through the anus and advanced to the cecum, identified by appendiceal orifice and ileocecal valve. The colonoscopy was performed without difficulty. The patient tolerated the procedure well. The quality of the bowel preparation was good. Scope In: 10:24:40 AM Scope Withdrawal Time 0 hours 7 minutes 14 seconds Scope Out: 10:35:22 AM Total Procedure Duration Time 0 hours 10 minutes 42 seconds Findings: Scattered severe inflammation was found in the rectum, in the sigmoid colon and in the descending colon. Biopsies were taken with a cold forceps for histology. A polyp was found in the descending colon. The polyp was removed with a hot snare. Resection and retrieval were complete. Impression: - Scattered severe inflammation was found in the rectum, in the sigmoid colon and in the descending colon secondary to colitis. Biopsied. - One polyp in the descending colon, removed with a hot snare. Resected and retrieved. Recommendation: - Discharge patient to home. - Resume previous diet. - Vancocin (vancomycin) 250 mg PO QID for 2 weeks. - Repeat colonoscopy in 5 years for surveillance. - Continue present medications. Procedure Code(s): --- Professional --- 29166, Colonoscopy, flexible; with removal of tumor(s), polyp(s), or other lesion(s) by snare technique 30555, 59, Colonoscopy, flexible; with biopsy, single or multiple Diagnosis Code(s): --- Professional --- K52.9, Noninfective gastroenteritis and colitis, unspecified D12.4, Benign neoplasm of descending colon K57.32, Diverticulitis of large intestine without perforation or abscess without bleeding CPT copyright 2017 [employer]. All rights reserved. The codes documented in this report are preliminary and upon solar photovoltaic crew lead review may be revised to meet current compliance requirements. Arthur Bergman MD 10/25/2022 10:45:03 AM This report has been signed electronically. Number of Addenda: 0 Note Initiated On: 10/25/2022 10:20 AM
== END 2022-10-25 11:19 | disposition home or self-care (01) ==
LOC: EN 08:55 → AC 08:57
PROVIDERS: Referring Provider Surgery; Visit Provider Surgery
PROC: 0DJD8ZZ Inspection of Lower Intestinal Tract, Via Natural or Artificial Opening Endoscopic (ICD-10-PCS; CPT 45378; principal; 2022-10-25 09:55)
DX: K57.32 Diverticulitis of large intestine without perforation or abscess without bleeding (principal); K52.9 Noninfective gastroenteritis and colitis, unspecified; D12.4 Benign neoplasm of descending colon
CPT/HCPCS: 45380; 45385; 88305; J7120; J2405

== ENCOUNTER → 2023-02-06 | Outpatient (CLI) | payer OTHER, SELFPAY ==
[2023-02-06 17:12] LABS: ALB/GLOB Ratio 1.2 RATIO (0.9-2.4); AST(SGOT) 20 U/L (15-37); Alanine Aminotransfer ALT/SGPT 33 U/L (16-61); Albumin, Serum 3.9 g/dL (3.2-5.0); Alkaline Phosphatase 96 U/L (45-117); Anion Gap 5 (5-15); BUN 9 mg/dL (7-18); BUN/Creat Ratio 9.2 RATIO (10-20); Calcium,Total 9.2 mg/dL (8.5-10.1); Chloride 104 mmol/L (98-107); Cholesterol 248 mg/dL (200); Creatinine, Serum 0.98 mg/dL (0.70-1.30); EST Glomerular Filtration Rate 84 mL/min (>60); Est Glom Filt Rate - Afr Amer 101 mL/min (>60); Globulin 3.2 g/dL (2.2-4.2); Glucose 90 mg/dL (74-106); High Density Lipoprotein 44 mg/dL; Potassium 4.2 mmol/L (3.5-5.1); Protein, Total 7.1 g/dL (6.4-8.2); Sodium Level 137 mmol/L (136-145); Triglycerides 215 mg/dL; Very Low Density Lipoprotein 43 mg/dL (5-40)
== END | disposition home or self-care (01) ==
LOC: BIMLAB 14:57
PROVIDERS: PCP Internal Medicine; Visit Provider Internal Medicine
DX: I10 Essential (primary) hypertension (principal)
CPT/HCPCS: 36415; 80053; 80061

== ENCOUNTER → 2023-03-10 | Outpatient (CLI) | payer OTHER, SELFPAY ==
[2023-03-10 17:10] LABS: Anion Gap 5 (5-15); BUN 12 mg/dL (7-18); BUN/Creat Ratio 12.2 RATIO (10-20); Calcium,Total 9.1 mg/dL (8.5-10.1); Chloride 102 mmol/L (98-107); Creatinine, Serum 0.98 mg/dL (0.70-1.30); EST Glomerular Filtration Rate 83 mL/min (>60); Est Glom Filt Rate - Afr Amer 101 mL/min (>60); Glucose 91 mg/dL (74-106); Sodium Level 133 mmol/L (136-145)
== END | disposition home or self-care (01) ==
LOC: LAB 15:47
PROVIDERS: PCP Internal Medicine; Referring Provider Internal Medicine; Visit Provider Internal Medicine
DX: I10 Essential (primary) hypertension (principal)
CPT/HCPCS: 36415; 80048

== ENCOUNTER → 2023-03-17 | Outpatient (CLI) | payer OTHER, SELFPAY | END | disposition home or self-care (01) | LOC: SL 09:08 | PROVIDERS: PCP Internal Medicine; Referring Provider Internal Medicine; Visit Provider Internal Medicine | DX: G47.10 Hypersomnia, unspecified (principal) | CPT/HCPCS: 95806 ==

== ENCOUNTER → 2023-06-16 | Outpatient (CLI) | payer OTHER, SELFPAY ==
[2023-06-16 12:57] LABS: Anion Gap 7 (5-15); BUN 8 mg/dL (7-18); BUN/Creat Ratio 8.4 RATIO (10-20); Calcium,Total 9.2 mg/dL (8.5-10.1); Chloride 104 mmol/L (98-107); Cholesterol 241 mg/dL (200); Creatinine, Serum 0.96 mg/dL (0.70-1.30); EST Glomerular Filtration Rate 86 mL/min (>60); Est Glom Filt Rate - Afr Amer 104 mL/min (>60); Glucose 110 mg/dL (74-106); High Density Lipoprotein 48 mg/dL; Potassium 4.4 mmol/L (3.5-5.1); Sodium Level 138 mmol/L (136-145); Triglycerides 228 mg/dL; Very Low Density Lipoprotein 46 mg/dL (5-40)
== END | disposition home or self-care (01) ==
LOC: BIMLAB 09:03
PROVIDERS: PCP Internal Medicine; Referring Provider Internal Medicine; Visit Provider Internal Medicine
DX: R73.9 Hyperglycemia, unspecified (principal); I10 Essential (primary) hypertension
CPT/HCPCS: 36415; 80048; 80061; 83036